=== PATIENT | female | born 1955 | race Caucasian/White ===

== ENCOUNTER 2016-06-13 14:24 | Emergency (ER) | payer OTHER ==
[~2016-06-13 14:24] MED LIST: ASPIRIN ADULT L81 MG PO; ATORVASTATIN CA40 MG PO; CARDIZEM CD PO; CETAPHIL; FLUTICASONE PR50 MCG; KEPPRA XR750 MG PO; LEVOFLOXACIN500 MG PO; METOPROLOL SUCC50 MG PO; NITROSTAT0.4 MG SL; NORCO1 TA1 PO; OMEPRAZOLE20 M1 PO; SERTRALINE HCL50 MG PO; TRIAMCINOLONE A0.11; WARFARIN; ZESTRIL2.5 MG PO
--- NOTE | 2016-06-13 16:45 | DIAGNOSTIC IMAGING REPORT ---
PROCEDURE: XR CHEST 2 VIEW INDICATION: SHORTNESS OF BREATH TECHNIQUE: PA and lateral views. COMPARISON: Compared to chest x-ray on 03/28/2016 and 03/27/2016. Comparison is made to CTA thorax (is 03/27/2016) FINDINGS: Lungs are clear. Heart and mediastinum are normal. Mild to moderate degenerative changes of the thoracic spine. IMPRESSION: 1. Negative chest.
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
--- NOTE | 2016-06-13 20:07 | ED ORDER SUMMARY ---
..... Patient: KALLI SORTO OrderSheet [facility] VisitID: [id number] [place] [address] 60y, F Registration Date/Time: 06/13/2016 ORDER SHEET Weight: 106.1 kg (stated) Allergies: Penicillin GENERAL ORDERS: Chest 2V Urgent (14:43 06/13/2016 Raza Morgan) (14:53 EHassan R.N.) Cardiac Panel Stat (14:44 06/13/2016 Raza Morgan) (14:53 EHassan R.N.) D-Dimer Urgent (14:44 06/13/2016 Raza Morgan) (14:53 DIYAassan R.N.) BNP Urgent (14:44 06/13/2016 Raza Morgan) (14:53 Jovin R.N.) UA-Culture if indicated Urgent (14:44 06/13/2016 Raza Morgan) (14:53 DIYAassameron R.N.) PT with INR Urgent (14:44 06/13/2016 Raza Morgan) (14:53 Jovin R.N.) PTT Urgent (14:44 06/13/2016 Raza Morgan) (14:53 DIYAassan R.N.) EKG - ER Stat (14:44 06/13/2016 Raza Morgan) (14:53 David R.N.) Magnesium Urgent (16:32 06/13/2016 Raza Morgan) (Cancelled: Physician Order16:33 Raza Morgan) MEDICATION ORDERS: IV FLUIDS: IV Saline Lock (14:44 06/13/2016 Raza Morgan) (15:18 DIYAassameron R.N.) Metoprolol IV 5 mg (HIGH ALERT MEDICATION, NOW) (14:52 06/13/2016 Raza Morgan) (15:26 EHassan R.N.) Diltiazem IV 20 mg (HIGH ALERT MEDICATION, NOW) (16:31 06/13/2016 Raza Morgan) (16:40 JHONATANaldkentrell R.N.) Magnesium Sulfate IV 2 gm/50mL (HIGH ALERT MEDICATION, NOW, over 1 hour) (17:14 06/13/2016 Raza Morgan) (17:41 Paulo Figueroa) ORDER SHEET NOTES: [Electronically signed by Leoncio Pinzon Dr. (22:56 06/13/2016)] [Electronically signed by Iris Benedict (05:05 06/17/2016)] [Electronically locked/signed by Iris Benedict (05:05 06/17/2016)]
--- NOTE | 2016-06-13 20:07 | ED ORDER SUMMARY ---
..... Patient: KALLI SORTO OrderSheet [facility] VisitID: [id number] [place] [address] 60y, F Registration Date/Time: 06/13/2016 ORDER SHEET Weight: 106.1 kg (stated) Allergies: Penicillin GENERAL ORDERS: Chest 2V Urgent (14:43 06/13/2016 Raza Morgan) (14:53 EHassan R.N.) Cardiac Panel Stat (14:44 06/13/2016 Raza Morgan) (14:53 EHassan R.N.) D-Dimer Urgent (14:44 06/13/2016 Raza Morgan) (14:53 DIYAassan R.N.) BNP Urgent (14:44 06/13/2016 Raza Morgan) (14:53 Jovin R.N.) UA-Culture if indicated Urgent (14:44 06/13/2016 Raza Morgan) (14:53 DIYAassameron R.N.) PT with INR Urgent (14:44 06/13/2016 Raza Morgan) (14:53 Jovin R.N.) PTT Urgent (14:44 06/13/2016 Raza Morgan) (14:53 DIYAassan R.N.) EKG - ER Stat (14:44 06/13/2016 Raza Morgan) (14:53 David R.N.) Magnesium Urgent (16:32 06/13/2016 Raza Morgan) (Cancelled: Physician Order16:33 Raza Morgan) MEDICATION ORDERS: IV FLUIDS: IV Saline Lock (14:44 06/13/2016 Raza Morgan) (15:18 DIYAassameron R.N.) Metoprolol IV 5 mg (HIGH ALERT MEDICATION, NOW) (14:52 06/13/2016 Raza Morgan) (15:26 EHassan R.N.) Diltiazem IV 20 mg (HIGH ALERT MEDICATION, NOW) (16:31 06/13/2016 Raza Morgan) (16:40 JHONATANaldkentrell R.N.) Magnesium Sulfate IV 2 gm/50mL (HIGH ALERT MEDICATION, NOW, over 1 hour) (17:14 06/13/2016 Raza Morgan) (17:41 Paulo Figueroa) ORDER SHEET NOTES: [Electronically signed by Leoncio Pinzon Dr. (22:56 06/13/2016)] [Electronically signed by Iris Benedict (05:05 06/17/2016)] [Electronically locked/signed by Iris Benedict (05:05 06/17/2016)]
--- NOTE | 2016-06-13 20:07 | ED CLINICAL REPORT ---
Clinical Report - Physicians/[facility] [address] [place] [address] 06/13/2016 14:26 Patient: KALLI SORTO Time Seen: 14:43; initial patient contact. Arrived- By private vehicle. Historian- patient. HISTORY OF PRESENT ILLNESS Chief Complaint: PALPITATIONS. It is described as a fast heart beat. Modifying factors. Not worsened by anything. Not relieved by anything. This started today and is still present. No chest pain or discomfort, difficulty breathing, sweating episodes or fainting episodes. No dizziness, tingling or muscle spasms. ( Cough x 2 weeks, worse per daughter, took to [place] [facility] and told she had a rapid HR and sent here. denies palpitations. states she has missed the last 3-4 doses of Metoprolol.). Similar symptoms previously: None. Recent medical care: The patient was seen recently in a clinic. REVIEW OF SYSTEMS No fever, chills, nausea or vomiting. She has had a cough. All systems otherwise negative, except as recorded above. PAST HISTORY Arrhythmia. Pulmonary Embolism. Osteoarthritis of Knee. Hypertension. Seizure. CVA - Cerebrovascular Accident. Atrial Fibrillation. CAD. Medications: Aspir-Low Oral. Atorvastatin Calcium Oral. Keppra Oral. Lisinopril Oral. Metoprolol Succinate ER Oral (Pt states last time has taken it prob ). Omeprazole Oral. Sertraline HCl Oral. Warfarin Sodium Oral. Allergies: Penicillin. SOCIAL HISTORY Former smoker. No recent travel. ADDITIONAL NOTES The nursing notes have been reviewed with agreement regarding the chief complaint, PMH and patient medications and allergies. PHYSICAL EXAM Appearance: Alert. Oriented X3. No acute distress. Eyes: Eyes normal inspection. ENT: Pharynx normal. Neck: Normal inspection. No JVD. CVS: Tachycardia. Abnormal rhythm, which is irregularly irregular. Heart sounds normal. Respiratory: No respiratory distress. Breath sounds normal. Abdomen: Soft and nontender. Bowel sounds normal. Skin: Skin warm and dry. Normal skin color. No rash. Extremities: No calf tenderness. No lower extremity edema. Neuro: Oriented X 3. No motor deficit. LABS, X-RAYS, AND EKG EKG: EKG time: (1447). Atrial flutter (ventricular rate 134). Normal QRS complex. Normal axis. Normal QT and QTc. Moderate ST depression in lead V3, V4 and V5. Prior EKG unavailable. The study has been interpreted contemporaneously by me. The study has been independently viewed by me. The EKG appears to be a good tracing. Interpretation time: 1447. EKG #2: EKG time: (1815). Narrow-complex tachycardia. Atrial flutter. Normal QRS complex. Normal axis. Normal ST and T waves. Prolonged QTc. The study has been interpreted contemporaneously by me. The EKG appears to be a good tracing. Interpretation time: 1815. Chest X-ray: No acute disease. Normal lung markings present. Normal heart size. No infiltrate. Views: PA and lateral. Technique: good. The X-rays were independently viewed by me and interpreted contemporaneously by me. A comparison with prior films reveals that the findings are unchanged. Interpretation time: 1620. Laboratory Tests: CBC w Diff: (RANDALL: 06/13/2016 15:30) ( MsgRcvd 06/13/2016 15:45) Final results Test Result Flag Units (Reference) WHITE BLOOD COUNT 9.4 K/uL (4.5-11.5) RED BLOOD COUNT 5.30 H M/uL (4.00-5.20) HEMOGLOBIN 14.4 gm/dL (12.0-16.0) HEMATOCRIT 44.4 % (36.0-46.0) MEAN CELL VOLUME 84 fL (80-100) MEAN CORPUSCULAR HGB 27 pg (26-34) MEAN CORPUSCULAR HGB CONC 33 g/dL (31-37) RED CELL DISTRIBUTION WIDTH 14.2 % (11.6-14.8) PLATELET COUNT 206 K/uL (150-400) LYMPH % 26.7 % (25-40) MONO % 3.6 % (3-14) GRANULOCYTE % 69.7 (53-90) PT with INR: (RANDALL: 06/13/2016 15:30) ( MsgRcvd 06/13/2016 15:54) Final results Test Result Flag Units (Reference) INR 1.2 (0.8-1.2) Low Intensity Therapy: INR 1.5-2.0 PT range 18.5-23.1Mod.Intensity Therapy: INR 2.0-3.0 PT range 23.1-31.5High Intensity Therapy: INR 2.5-3.5 PT range 27.4-35.5High Intensity Therapy 2: INR 3.0-4.0 PT range 31.5-39.3 APTT 28 SECONDS (24-34) D-DIMER QUANTITATIVE 0.37 ug/mLFEU (0.27-0.52) The primary value of this quantitative assay relates toits negative predictive value (i.e. exclusion) of pulmonaryembolism/deep vein thrombosis/DIC.Elevated levels of d-dimer may also occur with:, age, cancer, inflammation, liver disease,post-op, infection, hematoma, coronary disease, peripheralarteriopathy, bleeding disorders and thrombolytic treatment.Results should be correlated with other clinical andradiological data.Testing Methodology: Latex Immunoassay BNP: (RANDALL: 06/13/2016 15:30) ( PrgRcvd 06/13/2016 15:57) Final results Test Result Flag Units (Reference) B-TYPE NATRIURETIC PEPTIDE 62.8 pg/ml (5-100) CHEM 13 PANEL: (RANDALL: 06/13/2016 15:30) ( MsgRcvd 06/13/2016 16:02) Final results Test Result Flag Units (Reference) GLUCOSE 108 mg/dL (70-110) BUN 12 mg/dL (7-18) CREATININE 0.8 mg/dL (0.6-1.3) Estimated GFR >60 mL/min Estimated GFR- >60 mL/min Note: Persistent reduction over 3 months in eGFR<60 mL/min/1.73 m2 defines CKD. Patients with eGFR values>=60 mL/min/1.73 m2 may also have CKD if evidence ofpersistent proteinuria. Additional information may be foundat www.kidney.org. SODIUM 141 mmol/L (136-145) POTASSIUM 3.4 L mmol/L (3.5-5.1) CHLORIDE 105 mmol/L (98-107) CARBON DIOXIDE 26 mmol/L (21-32) CALCIUM 8.8 mg/dL (8.5-10.1) TOTAL PROTEIN 7.3 g/dL (6.4-8.2) ALBUMIN 3.6 g/dL (3.3-5.0) BILIRUBIN, TOTAL 0.7 mg/dL (0.0-1.0) ALKALINE PHOSPHATASE 85 U/L (46-116) AST (SGOT) 18 U/L (15-37) ALT (SGPT) 28 U/L (12-78) CPK 74 U/L (24-260) MAGNESIUM 1.6 L mg/dL (1.8-2.4) TROPONIN I <0.05 ng/mL (0.00-1.5) TROPONIN REFERENCE RANGE:<0.1 NEGATIVE0.1-1.5 INDETERMINANT>1.5 POSITIVE . PROGRESS AND PROCEDURES Course of Care: 06/13/2016 19:18 BP: 154/112. HR: 107. RR: 20. O2 saturation: 97%. Vital Signs: have been reviewed. Hypertensive. Tachycardic. Respiratory rate normal. Oxygen saturation normal. Discussed case with health care provider (call returned 20:00 Dr. Martini. Rate now controlled, pt w/ stable BP's and a reason for fast rate due to no beta blockers.). Disposition: Discharged in good and improved condition. Condition: good. CLINICAL IMPRESSION Atrial flutter. The patient does not have one or more high risk factors and/or two or more moderate risk factors for thromboembolism. The patient is prescribed warfarin or another FDA approved anticoagulant. Oral anticoagulation therapy with subtherapeutic INR. INSTRUCTIONS (You MUST take all of your medications as directed). Your Current Medications: CONTINUE TAKING THE FOLLOWING MEDICATIONS: Aspir-Low Oral. Atorvastatin Calcium Oral. Keppra Oral. Lisinopril Oral. Metoprolol Succinate ER Oral : Pt states last time has taken it prob . Omeprazole Oral. Sertraline HCl Oral. Warfarin Sodium Oral. Follow-up: Follow up with your doctor in about two days. Call for an appointment. Blood pressure screening was not performed during this visit because the patient has an active diagnosis of hypertension. The patient should follow up with a primary care provider for blood pressure management. (Electronically signed by Leoncio Pinzon Dr. 06/13/2016 22:56)
--- NOTE | 2016-06-17 05:05 | ED MAR SUMMARY ---
..... Medication Administration Record [facility] [address] [place] [address] Patient: KALLI SORTO Visit ID: [id number] 60y, F Weight: 106.1 kg Height/Length: 66 in BMI: 37.8 ALLERGIES: Penicillin Given 15:26 06/13/2016 Ana Rivers RDeliaN. Medication Administered: METOPROLOL [IVP] (METOPROLOL TARTRATE), Dose: 5 mg IVP over 5 minute(s), Site: #1 left hand. Medication Ordered: Metoprolol IV 5 mg (HIGH ALERT MEDICATION, NOW). Given 16:40 06/13/2016 My Gordon RDeliaNDelia Medication Administered: DILTIAZEM [IVP], Dose: 20 mg IVP over 4 minute(s), Site: #1 left hand. Medication Ordered: Diltiazem IV 20 mg (HIGH ALERT MEDICATION, NOW). Given 17:41 06/13/2016 Javier Sullivan RDeliaN. Medication Administered: MAGNESIUM SULFATE [IVP] (MAGNESIUM SULFATE IN D5W), Dose: 2 gm IVP over 2 hour(s), Site: #1 left hand. Medication Ordered: Magnesium Sulfate IV 2 gm/50mL (HIGH ALERT MEDICATION, NOW, over 1 hour).
--- NOTE | 2016-06-17 05:05 | ED MED RECONCILIATION SUMMARY ---
Patient: KALLI SORTO Medication Reconciliation Report [facility] VisitID: [id number] [address] [place] [address] 60y, F Registration Date/Time: 06/13/2016 Weight: 106.1 kg Height/Length: 66 in. BMI: 37.8 ALLERGIES: Penicillin The patient's Home Medications are listed below: CONTINUE TAKING THE FOLLOWING MEDICATIONS: Aspir-Low Oral Atorvastatin Calcium Oral Keppra Oral Lisinopril Oral Metoprolol Succinate ER Oral, Pt states last time has taken it prob Omeprazole Oral Sertraline HCl Oral Warfarin Sodium Oral The source(s) of the original Home Medication information: patient The following Medications were given to the patient in the Emergency Department: Metoprolol [IVP] IVP 5 mg, administered: 06/13/2016 3:26:00 PM Diltiazem [IVP] IVP 20 mg, administered: 06/13/2016 4:40:00 PM Magnesium Sulfate [IVP] IVP 2 gm, administered: 06/13/2016 5:41:00 PM The following Medications were prescribed to the patient: None.
--- NOTE | 2016-06-17 05:05 | ED MED RECONCILIATION SUMMARY ---
Patient: KALLI SORTO Medication Reconciliation Report [facility] VisitID: [id number] [address] [place] [address] 60y, F Registration Date/Time: 06/13/2016 Weight: 106.1 kg Height/Length: 66 in. BMI: 37.8 ALLERGIES: Penicillin The patient's Home Medications are listed below: CONTINUE TAKING THE FOLLOWING MEDICATIONS: Aspir-Low Oral Atorvastatin Calcium Oral Keppra Oral Lisinopril Oral Metoprolol Succinate ER Oral, Pt states last time has taken it prob Omeprazole Oral Sertraline HCl Oral Warfarin Sodium Oral The source(s) of the original Home Medication information: patient The following Medications were given to the patient in the Emergency Department: Metoprolol [IVP] IVP 5 mg, administered: 06/13/2016 3:26:00 PM Diltiazem [IVP] IVP 20 mg, administered: 06/13/2016 4:40:00 PM Magnesium Sulfate [IVP] IVP 2 gm, administered: 06/13/2016 5:41:00 PM The following Medications were prescribed to the patient: None.
--- NOTE | 2016-06-17 05:05 | ED MAR SUMMARY ---
..... Medication Administration Record [facility] [address] [place] [address] Patient: KALLI SORTO Visit ID: [id number] 60y, F Weight: 106.1 kg Height/Length: 66 in BMI: 37.8 ALLERGIES: Penicillin Given 15:26 06/13/2016 Ana Rivers RDeliaN. Medication Administered: METOPROLOL [IVP] (METOPROLOL TARTRATE), Dose: 5 mg IVP over 5 minute(s), Site: #1 left hand. Medication Ordered: Metoprolol IV 5 mg (HIGH ALERT MEDICATION, NOW). Given 16:40 06/13/2016 My Gordon RDeliaNDelia Medication Administered: DILTIAZEM [IVP], Dose: 20 mg IVP over 4 minute(s), Site: #1 left hand. Medication Ordered: Diltiazem IV 20 mg (HIGH ALERT MEDICATION, NOW). Given 17:41 06/13/2016 Javier Sullivan RDeliaN. Medication Administered: MAGNESIUM SULFATE [IVP] (MAGNESIUM SULFATE IN D5W), Dose: 2 gm IVP over 2 hour(s), Site: #1 left hand. Medication Ordered: Magnesium Sulfate IV 2 gm/50mL (HIGH ALERT MEDICATION, NOW, over 1 hour).
--- NOTE | 2016-06-17 05:05 | ED DISCHARGE INSTRUCTIONS ---
Patient: KALLI SORTO General Instructions [facility] VisitID: [id number] [place] [address] 60y, F Registration Date/Time: 06/13/2016 Atrial flutter. The patient does not have one or more high risk factors and/or two or more moderate risk factors for thromboembolism. The patient is prescribed warfarin or another FDA approved anticoagulant. Oral anticoagulation therapy with subtherapeutic INR. INSTRUCTIONS (You MUST take all of your medications as directed). Your Current Medications: CONTINUE TAKING THE FOLLOWING MEDICATIONS: Aspir-Low Oral. Atorvastatin Calcium Oral. Keppra Oral. Lisinopril Oral. Metoprolol Succinate ER Oral : Pt states last time has taken it prob . Omeprazole Oral. Sertraline HCl Oral. Warfarin Sodium Oral. Follow-up: Follow up with your doctor in about two days. Call for an appointment. Blood pressure screening was not performed during this visit because the patient has an active diagnosis of hypertension. The patient should follow up with a primary care provider for blood pressure management. ADDITIONAL INFORMATION Atrial Flutter Atrial flutteris a condition where the heart beats at a very rapid rate. It is due to a disturbance in the electrical pathways of the heart. It is a sign of heart disease or other health problems affecting the heart. The most common symptom ispalpitations. This is the feeling that your heart is fluttering or beating fast or hard. When the heart beats too fast, it does not pump blood very well. This can cause other symptoms such as anxiety, fatigue, shortness of breath, chest pain, dizziness or fainting. If this is your first episode of atrial flutter, and you have no heart or lung disease, you may never have another episode again. But in most cases, atrial flutter comes and goes, lasting from a few hours to a couple of days. Sometimes the atrial flutter does not ever go away and becomes chronic. Atrial flutter may be caused by disease of the heart or other conditions in the body that affect the heart: Coronary artery disease (arteriosclerosis) High blood pressure Disease of the heart valves Enlarged heart Atrial flutter can occur without heart disease due to: Overactive thyroid (hyperthyroid) Chronic lung disease (COPD, emphysema, bronchitis) Heavy alcohol use Cardiac stimulants (cocaine, amphetamines, diet pills, certain decongestant cold medicines, caffeine or nicotine) Infection Treating or removing these causes will improve success in the treatment of atrial flutter and reduce your risk of recurrence. Atrial flutter can alternate back and forth with another abnormal rhythm called atrial fibrillation. The risk of stroke is higher with these conditions. Proper treatment can reduce your risk. Home Care: Resume your usual activities as soon as you are feeling back to normal. If you smoke, stop smoking. Contact your doctor or a local stop-smoking program for help. Avoid stimulants (cocaine, amphetamines, diet pills, certain decongestant cold medicines, caffeine, or nicotine). If medicine is prescribed to prevent recurrence of atrial fibrillation, take it exactly as directed. Some medicines must be taken daily, not just when you have symptoms, in order to be effective. If you were prescribed warfarin (Coumadin) to reduce stroke risk, have your blood tested on a regular basis as advised by your doctor. This will ensure that the dose is correct for you. Follow Up With Your Doctor Or As Advised By Our Staff. Get Prompt Medical Attention If Any Of The Following Occur: Increasing shortness of breath Swellingof the legs Unexpected weight gain Chest pain or palpitations (the sense that your heart is fluttering, beating fast or hard) Fever of 100.4F (38C) or higher, or as directed by your healthcare provider Cough with dark-colored or bloody sputum (mucus) Pain, redness, or swelling in one leg Signs of stroke: Weakness or numbness of an arm or leg or one side of the face Difficulty with speech or vision Extreme drowsiness, confusion, dizziness or fainting You have been given the following additional information: Atrial Flutter (Electronically signed by Leoncio Pinzon Dr. 06/13/2016 22:56)
== END 2016-06-13 20:13 | disposition home or self-care (01) ==
LOC: ED SRH 14:24
DX: I48.92 Unspecified atrial flutter (principal); I10 Essential (primary) hypertension; Z88.0 Allergy status to penicillin; Z87.891 Personal history of nicotine dependence; Z79.01 Long term (current) use of anticoagulants; Z86.73 Personal history of transient ischemic attack (TIA), and cerebral infarction without residual deficits
CPT/HCPCS: 90074; 90100; 90616; 91320; 91556; 92610; 92720; 94001; 94060; 95059